=== PATIENT | female | born 2005 | race Caucasian/White ===

== ENCOUNTER 2025-04-05 09:01 | Emergency (ER) | payer OTHER, SELFPAY ==
--- OUTSIDE RECORDS SUMMARY | 2025-04-05 09:14 | XMS_ITS | Clinical Summary ---
Author Organization [facility] Address [address] [place] [address] Care Team Providers Care Veterinary Practice Manager Name Role Phone Agnieszka Morales MD Primary Care Provider Source Comments [facility],non-owned Affiliates and Associated Physician Practices is amultiple site organization consisting of ambulatory clinics and hospital sitesin [place], [place], [place] and [place]. This disclosure is being madepursuant to the Care Everywhere program and may not contain all information available regarding this patient. Last updated 18.[facility] [employer] Allergies No known active allergies Medications * Be aware that medications may not be up to date on this document. Alwaysverify current medications with the patient. naproxen (NAPROSYN) 500 MG tabletIndication s:Arthralgia, unspecified joint Take 1 tablet by mouth 2 times daily with morning and evening meal 60 tablet 3 03/10/2018 Active Active Problems Problem Noted Date Diagnosed Date Arthralgia 03/10/2018 Compulsive behavior 02/04/2011 Vulvitis 02/04/2011 Family History Medical History Relation Name Comments Arthritis - Rheumatoid Maternal Grandfather Arthritis - Rheumatoid Mother Lupus Mother Celiac Disease Neg Hx Crohn's Disease Neg Hx Psoriasis Neg Hx Thyroid Disease Neg Hx Ulcerative Colitis Neg Hx Relation Name Status Comments Maternal Grandfather Mother Social History Tobacco Use Types Packs/Day Years Used Date Smoking Tobacco: Never Assessed Comments No Sex and Gender Information Value Date Recorded Sex Assigned at Not on file Legal Sex Female 5:44 AM OFFICE ADMINISTRATION Gender Identity Not on file Sexual Orientation Not on file Last Filed Vital Signs Vital Sign Reading Time Taken Comments Blood Pressure 98/66 03/10/2018 8:31 AM CDT Pulse 80 03/10/2018 8:31 AM CDT Temperature 37.1 C (98.8 F) 12/18/2011 4:25 PM OFFICE ADMINISTRATION Respiratory Rate 20 03/10/2018 8:31 AM CDT Oxygen Saturation - - Inhaled Oxygen Concentration - - Weight 60.6 kg (133 lb 9.6 oz) 03/10/2018 8:31 A M CDT Height 159.2 cm (5' 2.68) 03/10/2018 8:31 AM CD T Body Mass Index 23.91 03/10/2018 8:31 AM CDT Plan of Treatment Health Maintenance Due Date Last Done Comments HIV SCREENING 2018 HPV VACCINE (1 - 3-dose series) 2018 CHLAMYDIA/GONORRHEA SCREENING 2019 MENINGOCOCCAL (Group B) VACC INE SHARED DECISION-MAKING (1 of 2 - Standard) 2019 HEPATITIS C SCREENING 06/25/2021 DTAP/TDAP/TD VACCINES (1 - Tdap) 2022 HEPATITIS B VACCINE (1 of 3 - 19+ 3-dose series) 2022 COVID-19 VACCINE (1 - 2023-2 5 season) 2024 DEPRESSION SCREENING 11/03/2024 INFLUENZA VACCINE (Season Ended) 2025 ZOSTER VACCINE (1 of 2) 2053 HIB VACCINE Aged Out No longer eligi ble based on patient's age to complete this topic MENINGOCOCCAL GROUPS A/C/Y/W VACCINE Aged Out No longer eligible b ased on patient's age to complete this topic PNEUMOCOCCAL VACCINE Aged Out No long er eligible based on patient's age to complete this topic Insurance [facility] - OUT OF STATE * Guarantor: [facility] Account Type Relation to Patient Date of Phone Billing Address Company Employer [employer] [place] [id number] Care Teams Veterinary Practice Manager Relationship Specialty Start Date End Date Agnieszka Morales MD [address] [place] [id number] PCP - General 01/17/11
[2025-04-05 09:15] VITALS: BP 111/70; PULSE 68; RESP 18; TEMP 36.5; O2SAT 100
--- NOTE | 2025-04-05 09:29 | ED.SKABFB ---
HPI - Skin/Abscess/Foreign Bdy General Chief complaint: Skin/Abscess/Foreign Body Stated complaint: rash Time Seen by Provider: 04/05/25 09:10 Source: patient Mode of arrival: ambulatory Limitations: no limitations History of Present Illness HPI narrative: López is a 19-year-old female patient presenting to the clinic today with complaints of a rash that is been occurring for 1.5 months. States that the rash comes and goes. Rash is very itchy and has small raised areas to the skin. Rash is currently on her legs, arms, hands, and abdomen. No fevers, chills, body aches. Denies any prior mental changes. No new soaps, shampoos, detergents, or lotions. She does take hot baths 3 times a day. 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 Has not been recently swimming or in a hot tubs. Related Data Allergies Allergy/AdvReac Type Severity Reaction Status Date / Time No Known Allergies Allergy Mild Verified 04/05/25 09:12 Review of Systems Review of Systems: Pertinent positives per HPI. Patient denies any fever, chills, headache, visual changes, dizziness, cough, runny nose, sore throat, shortness of breath, chest pain, palpitations, nausea, vomiting, diarrhea, constipation, abdominal pain, or any urinary issues. PMFSH Comments At the time of my signature, I reviewed and agree with the nursing past medical, surgical, social, and family history. There is no relevant family history pertinent to the patient complaint. Exam Narrative: General: Well-developed, well nourished, in no apparent distress Head: Normocephalic, atraumatic. Cardio: Regular rate and rhythm, s1 and s2 normal, no murmur appreciated. Resp: Clear to auscultation bilaterally, no rhonchi, rales, wheezing or rubs. Integumentary: [place], warm, and dry, red raise blanchable small scattered papule bumps to the hands, arms, legs, and abdomen that are itchy. Course Course Emergency Course: Portions of this record may have been created with voice recognition software. Level of Care: Express Care Visit Vital Signs Vital signs: Vital Signs Temperature 36.5 C 04/05/25 09:15 Pulse Rate 68 04/05/25 09:15 Respiratory Rate 18 04/05/25 09:15 Blood Pressure 111/70 04/05/25 09:15 Pulse Oximetry 100 04/05/25 09:15 Oxygen Delivery Room Air 04/05/25 09:15 Temperature 36.5 C 04/05/25 09:15 Pulse Rate 68 04/05/25 09:15 Respiratory Rate 18 04/05/25 09:15 Blood Pressure 111/70 04/05/25 09:15 Pulse Oximetry 100 04/05/25 09:15 Oxygen Delivery Room Air 04/05/25 09:15 Vital signs reviewed MDM - Skin/Abscess/Foreign Bdy MDM Narrative Medical decision making narrative: At the time of visit patient is resting comfortably on the exam table. Patient appears to be nontoxic. Plan: I suspect patient has dermatitis. Prescription for prednisone, triamcinolone cream, and Vistaril was sent to the pharmacy. Recommend taking afrn-ops-[id number] histamine daily. Supportive measures were discussed with the patient and they voiced understanding discharge instructions and agrees to treatment plan. Return precautions reviewed Differential Diagnosis Differential diagnosis: Likely abscess of skin or subcutaneous tissue, viral exanthem, dermatophytosis, urticaria, herpes zoster, allergic reaction to drug, cellulitis, eczema, insect bites, impetigo, contact dermatitis and other (Scabies, folliculitis) Discharge Plan Discharge Clinical Impression: Dermatitis Patient Disposition: Home Condition: Stable Instructions: Antibiotic Form, Dermatitis (ED) Additional Instructions: Apply triamcinolone cream as directed Take prednisone as directed May take [id number]-hil-[id number] antihistamine such as Zyrtec or Claritin daily May take Vistaril 25mg as prescribed for itching Avoid hot showers Avoid scratching as this can cause a secondary infection Follow up with your PCP in 3-5 days if symptoms persist or sooner if they worsen Go to the Emergency Room if symptoms worsen- fever, rash spreading with treatment, shortness of breath, tongue swelling, drooling, or chest pain Patient Language: British Prescriptions: New prednisone 10 mg tablet 10 mg PO DAILY Qty: 30 0RF Rx Instructions: 60mg po daily on day 1, 40mg po daily on days 2-4, 30mg po daily on days 5-6, 20mg po daily on days 7-8, 10mg po daily on days 9-10 triamcinolone acetonide 0.1 % cream 1 applic topical BID 7 Days Qty: 30 0RF hydroxyzine HCl 25 mg tablet 25 mg PO TID PRN (Reason: itching) 10 Days Qty: 30 0RF Follow-up/Referrals: PHYSICIAN,MANAGER USER INTERFACE [Primary Care Provider] - Time of Disposition: 09:30 Quality NIHSS Nursing Documentation ED NIHSS nursing documentation: reviewed/agree
== END 2025-04-05 09:34 | disposition home or self-care (01) ==
PROVIDERS: Emergency Provider Nurse Practitioner Family; Referring Provider Emergency Medicine
DX: L30.9 Dermatitis, unspecified (principal)
CPT/HCPCS: 99203; G0463

== ENCOUNTER 2025-04-20 11:17 | Emergency (ER) | payer OTHER, SELFPAY ==
[2025-04-20 11:24] VITALS: BP 103/65; PULSE 67; RESP 14; TEMP 36.8; O2SAT 100
--- NOTE | 2025-04-20 11:34 | ED_ITS ---
HPI - Skin/Abscess/Foreign Bdy General Chief complaint: Skin/Abscess/Foreign Body Stated complaint: Skin/Abscess/Foreign Body Time Seen by Provider: 04/20/25 11:30 Source: patient Mode of arrival: ambulatory Limitations: no limitations History of Present Illness HPI narrative: López is a 19-year-old female patient presenting to the clinic today with complaints of a itchy skin rash. She was seen here 2 weeks ago and diagnosed with dermatitis, hydroxyzine, and prescribed triamcinolone cream and a 10 day course of prednisone. States that the steroid did help her symptoms however this symptoms have come back. States the Vistaril makes her tired so she has not been able to take it as often as she would like to and that the triamcinolone cream does not seem to be helping. She has a schedule appointment to see Dermatology and mid May. No environmental changes. No changes in soaps, shampoos, detergents, lotions, foods, or medications. 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 Has red raised itchy rash on her legs, arms, back, chest, and torso. Denies any chest pain, shortness of breath, tongue swelling, or drooling. Related Data Allergies Allergy/AdvReac Type Severity Reaction Status Date / Time No Known Allergies Allergy Mild Verified 04/20/25 11:19 Review of Systems Review of Systems: Pertinent positives per HPI. Patient denies any fever, chills, headache, visual changes, dizziness, cough, runny nose, sore throat, shortness of breath, chest pain, palpitations, nausea, vomiting, diarrhea, constipation, abdominal pain, or any urinary issues. PMFSH Comments At the time of my signature, I reviewed and agree with the nursing past medical, surgical, social, and family history. There is no relevant family history pertinent to the patient complaint. Exam Narrative: General: Well-developed, well nourished, in no apparent distress Head: Normocephalic, atraumatic. Cardio: Regular rate and rhythm, s1 and s2 normal, no murmur appreciated. Resp: Clear to auscultation bilaterally, no rhonchi, rales, wheezing or rubs. Integumentary: [place], warm, and dry, red, raised, itchy, scaly nonpainful rash to torso, back, arms, and legs Course Course Emergency Course: Portions of this record may have been created with voice recognition software. Level of Care: Express Care Visit Vital Signs Vital signs: Vital Signs Temperature 36.8 C 04/20/25 11:24 Pulse Rate 67 04/20/25 11:24 Respiratory Rate 14 04/20/25 11:24 Blood Pressure 103/65 04/20/25 11:24 Pulse Oximetry 100 04/20/25 11:24 Oxygen Delivery Room Air 04/20/25 11:24 Temperature 36.8 C 04/20/25 11:24 Pulse Rate 67 04/20/25 11:24 Respiratory Rate 14 04/20/25 11:24 Blood Pressure 103/65 04/20/25 11:24 Pulse Oximetry 100 04/20/25 11:24 Oxygen Delivery Room Air 04/20/25 11:24 Vital signs reviewed MDM - Skin/Abscess/Foreign Bdy MDM Narrative Medical decision making narrative: At the time of visit patient is resting comfortably on the exam table. Patient appears to be nontoxic. Patient has dermatology follow-up in mid May. Plan: I suspect patient likely still has dermatitis. Prescription for stronger steroid cream-clobetasol and a Medrol Dosepak was prescribed. Supportive measures were discussed with the patient and they voiced understanding discharge instructions and agrees to treatment plan. Return precautions reviewed Differential Diagnosis Differential diagnosis: Likely abscess of skin or subcutaneous tissue, viral exanthem, dermatophytosis, urticaria, herpes zoster, allergic reaction to drug, cellulitis, eczema, insect bites, impetigo and contact dermatitis Discharge Plan Discharge Clinical Impression: Dermatitis Patient Disposition: Home Condition: Stable Instructions: Antibiotic Form, Dermatitis (ED) Additional Instructions: Apply clobetasol cream as directed Take Medrol Dosepak as directed Avoid hot showers Moisturize your skin twice daily using Cetaphil, Lubriderm, or Aquaphor lotion Avoid scratching as this can cause a secondary infection. May continue hydroxyzine 25-50mg every 8 hours as needed for itching. Follow up with your PCP in 3-5 days if symptoms persist or sooner if they worsen Go to the Emergency Room if symptoms worsen- fever, rash spreading with treatment, shortness of breath, tongue swelling, drooling, or chest pain Patient Language: Lithuanian Prescriptions: New methylprednisolone [Medrol (Inder)] 4 mg tablets,dose pack See Rx Instructions PO .COMPLEX Qty: 21 0RF Rx Instructions: orally per package directions clobetasol 0.05 % cream 1 applic topical BID 14 Days Qty: 60 0RF No Action triamcinolone acetonide 0.1 % cream 1 applic topical BID 7 Days Qty: 30 0RF hydroxyzine HCl 25 mg tablet 25 mg PO TID PRN (Reason: itching) 10 Days Qty: 30 0RF Follow-up/Referrals: PHYSICIAN,MATERIAL ANALYST [Primary Care Provider] - Time of Disposition: 11:37 Quality NIHSS Nursing Documentation ED NIHSS nursing documentation: reviewed/agree
--- OUTSIDE RECORDS SUMMARY | 2025-04-20 13:05 | XMS_ITS | Clinical Summary ---
Author Organization [facility] Address [facility] [place] [address] Care Team Providers Care Windows Application Packager Name Role Phone None, Provider MD Primary Care Provider Unavaila ble Allergies No known active allergies Medications lidocaine viscous 2 % solution Use as directed 15 mLs in the mouth or throat every 4 (four) hours as needed. 200 mL 1 Active ondansetron (ZOFRAN-ODT) 4 MG disintegrating tablet Take 1 tablet (4 mg total) by mouth every 8 (eight) hours as needed for Nausea. 20 tablet 3 Active Active Problems No known active problems Family History Medical History Relation Comments Lupus Mother Relation Status Comments Mother Social History Tobacco Use Types Packs/Day Years Used Date Smoking Tobacco: Never Smokeless Tobacco: Never Alcohol Use Standard Drinks/Week Comments No 0 (1 standard drink = 0.6 oz pur e alcohol) AUDIT-C Answer Date Recorded Frequency of Alcohol Consumption Never 11/16/2019 Average Number of Drinks Not on file 020 Frequency of Binge Drinking Not on file 11/03 Comments No Sex and Gender Information Value Date Recorded Sex Assigned at Not on file Legal Sex Female 4:56 PM CDT Gender Identity Not on file Sexual Orientation Not on file Last Filed Vital Signs Vital Sign Reading Time Taken Comments Blood Pressure 100/53 09/08/2023 8:30 PM ATTACHE Pulse 81 09/08/2023 6:49 PM ATT[facility]HE Temperature 36.7 C (98 F) 09/08/2023 6:49 PM ATTACHE Respiratory Rate 18 09/08/2023 6:49 PM ATTACHE Oxygen Saturation 99% 09/08/2023 8:30 PM ATTACHE Inhaled Oxygen Concentration - - Weight 52.2 kg (115 lb) 09/08/2023 6:49 PM ATTACHE Height 162.6 cm (5' 4) 09/08/2023 6:49 PM ATTACHE Body Mass Index 19.74 09/08/2023 6:49 PM ATTACHE Plan of Treatment Health Maintenance Due Date Last Done Comments Cervical Cancer Screening Pap Smear (Age 21 to 29) Every 3 Years 2003 Cervical Cancer Screening 2003 Annual Physical 2006 DTaP, Tdap and Td Vaccines (6 - Tdap) 2014 06/17/2008, 01/08/2005, 01/11/2004, Additional history exists Meningococcal B Vaccine (1 of 2 - Standard) 2019 Hepatitis C 2021 Hepatitis B Vaccines (1 of 3 - 19+ 3-dose series) 2022 COVID-19 Vaccine ( season) 2024 PHQ-2 (Physician Eek) 11/03/2024 Meningococcal Vaccine Aged Out 07/01/2014 No yue angelic eligible based on patient's age to complete this topic HPV Vaccines Completed 01/02/2015, 03/2014, 07/01/2014 Pneumococcal Vaccine: Pediatrics (0 to 5 Years) and At-Risk Patients (6 to 49 Years) Aged Out No longer eligible based on patient's age to complete this topic RSV Immunizations Under 20 Months Aged Out No longer eligible based on patient's age to complete this topic Insurance REVELO REVELO Care Teams Windows Application Packager Relationship Specialty Start Date End Date None, Provider, PCP - General UNKNOWN PHYSICIAN SPECIALTY 06/02/23
--- OUTSIDE RECORDS SUMMARY | 2025-04-20 13:05 | XMS_ITS | Clinical Summary ---
Author Organization [facility] Address [address] [place] [address] Care Team Providers Care Web Operations Specialist Name Role Phone Agnieszka Morales MD Primary Care Provider Source Comments [facility],non-owned Affiliates and Associated Physician Practices is amultiple site organization consisting of ambulatory clinics and hospital sitesin [place], [place], [place] and [place]. This disclosure is being madepursuant to the Care Everywhere program and may not contain all information available regarding this patient. Last updated 18.[facility] [employer] Allergies No known active allergies Medications * [...] on file Legal Sex Female 5:44 AM OXYACETYLENE BURNER Gender Identity Not on file Sexual Orientation Not on file Last Filed Vital Signs Vital Sign Reading Time Taken Comments Blood Pressure 98/66 03/10/2018 8:31 AM CDT Pulse 80 03/10/2018 8:31 AM CDT Temperature 37.1 C (98.8 F) 12/18/2011 4:25 PM OXYACETYLENE BURNER Respiratory Rate 20 03/10/2018 8:31 AM CDT [...] patient's age to complete this topic Insurance [facility] MEDICAID - OUT OF STATE * Guarantor: [facility] Account Type Relation to Patient Date of Phone Billing Address Company Employer [employer] [place]note 2] [place] [id number] Care Teams Web Operations Specialist Relationship Specialty Start Date End Date Agnieszka Morales MD [address] [place] [id number] PCP - General 01/17/11
== END 2025-04-20 11:38 | disposition home or self-care (01) ==
PROVIDERS: Emergency Provider Nurse Practitioner Family
DX: L30.9 Dermatitis, unspecified (principal)
CPT/HCPCS: 99213; G0463